=== PATIENT | female | born 1980 | race Caucasian/White ===

== ENCOUNTER 2018-04-24 16:37 | Emergency (ER) | payer SELFPAY ==
[2018-04-24 16:44] VITALS: BP 172/91; BMI 28.3
[2018-04-24] MEDS ORDERED: BENADRYL INJ 50 MG VIAL IM ONE (17:13)
[2018-04-24] MEDS ORDERED: ZANTAC PO ONE (17:17)
[2018-04-24] MEDS ORDERED: BENADRYL INJ 50 MG VIAL ONE (17:17)
--- NOTE | 2018-04-24 17:22 | DR.ALLERGY ---
HPI - Time Seen Time seen: 15:00 - PCP Primary Care Physician: [facility] - Complaint/Symptoms Chief Complaint Doctors Comments: Patient presents with complaint of allergic reaction to hair coloring that was applied to hear/hair several hours ago. She complains of rash to ears and neck. Chief Complaint:: Two days ago pt colored her hair. The next day pt noticed a severe rash to ear and neck. Rash has been oozing and draining clear drainage. Pt c/o itching to site as well. Denies pain - Source History Provided: Patient - Mode of Arrival Mode of Arrival: Ambulatory - Timing Onset of Chief Complaint: 04/23/18 PMH - PMH Past Medical History: No Past Medical History: Hypertension Past Surgical History: Yes Surgical History: - Family History History of Family Medical Conditions: Yes Family Medical History: Hypertension - Social History Does patient currently use any type of tobacco product: Yes Have you used tobacco products in the last 12 months: Yes Type of Tobacco Use: None Does any household member use tobacco: No Alcohol Use: Occasionally Do you use any recreational Drugs:: No Lives With: Alone Lives Where: Home - infectious screening In the last 2 months have you had wt loss of >10#?: NO Have you had fever, night sweats or hemotysis?: No Have you traveled outside the country in the last 6 months?: No Isolation: Standard ROS - Review of Systems Eyes: No Symptoms Reported ENTM: No Symptoms Reported Respiratoy: No Symptoms Reported Cardiovascular: No Symptoms Reported Gastrointestinal/Abdominal: No Symptoms Reported Genitourinary: No Symptoms Reported Neurological: No Symptoms Reported Musculoskeletal: No Symptoms Reported Integumentary: Itching (bilateral ear lobes, nape of neck left side) Endocrine: No Symptoms Reported Psychiatric: No Symptoms Reported All Other Systems: Reviewed and Negative PE - Vitals Vital Signs: Temp Pulse Resp BP BP Pulse Ox 04/24/18 16:38 97.9 F 106 H 20 172/91 100 01/27/17 10:31 170/111 07/26/14 01:35 163/96 - Constitutional Limitations: No Limitations General Appearance: Alert, In No Apparent Distress - Head Head Exam: Normal Inspection, Atraumatic - Eyes Eye exam: Normal Appearance, PERRL, EOMI - ENT ENT Exam: Normal Exam Mouth Exam: Normal Inspection, Drooling Throat Exam: Normal Inspection, Tonsillar Erythema - Neck Neck Exam: Normal Inspection - Chest Chest Inspection: Normal Inspection, Symmetric Chest Wall Rise - Respiratory Respiratory Exam: Normal Lung Sounds Bilat Respiratory Exam: Bilateral Clear to Auscultation - Cardiovascular Cardiovascular Exam: Regular Rate - Abdominal Exam Abdominal Exam: Normal Inspection, Normal Bowel Sounds Abdominal Tenderness: negative: RUQ, RLQ, LUQ, LLQ, Epigastrium, Suprapubic, Diffuse, Mild, Moderate, Severe, Other - Extremities Extremities Exam: Normal Inspection, Full ROM - Back Back Exam: Normal Inspection - Neurologic Neurological Exam: Alert, Oriented X3, CN II-XII Intact - Psychiatric Psychiatric Exam: Normal Affect, Normal Mood - Skin Skin Exam: Warm, Dry, Rash, Erythema (ear lobes, nape of neck oozing) Distribution: Generalized Description: Size - Diagnosis Discharge Problem: Contact dermatitis Qualifiers: Contact dermatitis type: allergic Contact dermatitis trigger: dye Qualified Code(s): L23.4 - Allergic contact dermatitis due to dyes - Discharge Plan Condition: Stable - Follow ups/Referrals Follow ups/Referrals: N[facility],None [Primary Care Provider] - 3 days - Instructions
[2018-04-24] MEDS ORDERED: ZANTAC PO SCH (18:00)
== END 2018-04-24 17:32 | disposition home or self-care (01) ==
LOC: ER 16:47
DX: L23.4 Allergic contact dermatitis due to dyes (principal)
CPT/HCPCS: 99281; 99282; J1200